=== PATIENT | female | born 1980 | race Two or more races ===

== ENCOUNTER → 2025-01-01 | Outpatient (CLI) | payer MEDICAID, SELFPAY ==
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
== END | disposition home or self-care (01) ==
PROVIDERS: Referring Provider Family Medicine; Visit Provider Family Medicine
DX: R55 Syncope and collapse (principal); R51.9 Headache, unspecified; Z87.828 Personal history of other (healed) physical injury and trauma
CPT/HCPCS: 70450

== ENCOUNTER 2025-02-18 06:17 | Emergency (ER) | payer SELFPAY ==
[2025-02-18 06:20] VITALS: BMI 31.2
[2025-02-18 06:32] VITALS: BP 120/86; PULSE 104; RESP 18; TEMP 37.1; O2SAT 98
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
[2025-02-18 08:49] LABS: Collection Type, Urine Voided
[2025-02-18 08:50] LABS: HCG Qualitative,Urine Negative
[2025-02-18 08:51] LABS: Bilirubin,Urine Negative (Negative); Blood,Urine 1+ (Negative); Clarity,Urine Clear (Clear/Hazy); Color,Urine Yellow (Lt Yel-Yel); Culture Indicated,Urine Not Indicated; Glucose, Urine Negative (Negative); Ketones,Urine Negative (Negative); Leukocyte Esterase,Urine Negative (Negative); Nitrite,Urine Negative (Negative); PH,Urine 6.5 (5.0-7.0); Protein,Urine Trace (Neg - Trace); RBC,Urine 9 /hpf (0-3); Specific Gravity,Urine 1.024 (1.001-1.035); Squamous Epithelial Cell,Urine 1 /hpf (0-5); Urobilinogen,Urine Negative mg/dL (0.0-1.0); WBC,Urine 2 /hpf (0-5)
== END 2025-02-18 10:38 | disposition home or self-care (01) ==
PROVIDERS: Nurse Practitioner Family; Emergency Provider Emergency Medicine
DX: T14.8XXA Other injury of unspecified body region, initial encounter (principal); V49.9XXA Car occupant (driver) (passenger) injured in unspecified traffic accident, initial encounter; M25.551 Pain in right hip; M54.50 Low back pain, unspecified
CPT/HCPCS: 72100; 73502; 81001; 81025; 99283

== ENCOUNTER 2025-04-05 16:30 | Outpatient (RCR) | payer MEDICAID, SELFPAY ==
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
--- NOTE | 2025-04-05 17:49 | PT.ODAYNRPT ---
PT Outpatient Daily Note OP Daily Note Outpatient Physical Therapy Treatment Date: 04/05/25 Visit Reasons: Shoulder/hip/pain Subjective: Continued LBP on R side radiating into the glute and lateral hip Objective: See F/S for therex MT: [facility] L/S x7' Assessment: Poor response to prone on elbows with increased pressure in L/S but standing extension was more tolerable Plan: Continue per POC Length of Time (minutes) of Treatment: 30 Minutes Procedure Charges Therapeutic Exercise 30 minutes: Yes
== END 2025-04-23 23:59 | disposition home or self-care (01) ==
LOC: CPTX 16:30
PROVIDERS: PCP Family Medicine; Referring Provider Family Medicine; Visit Provider Family Medicine
DX: M25.551 Pain in right hip (principal); M54.50 Low back pain, unspecified; M25.512 Pain in left shoulder; M94.0 Chondrocostal junction syndrome [Tietze]
CPT/HCPCS: 97110; 97162

== ENCOUNTER 2025-05-03 16:29 | Emergency (ER) | payer MEDICAID, SELFPAY ==
[2025-05-03 16:48] VITALS: BP 114/79; PULSE 83; RESP 18; TEMP 37.3; O2SAT 97
--- NOTE | 2025-05-03 16:58 | XR_ITS ---
Examination: PA lateral chest 2 views TECHNIQUE: Upright PA lateral chest 2 views Date and time: May 03, 2025, 1731 hours INDICATIONS: Chest pain and shortness of breath beginning 3 days ago. FINDINGS: Normal heart size. Lungs are clear. The osseous structures are intact. IMPRESSION: No active disease.
--- NOTE | 2025-05-03 16:59 | PD.EDRME ---
Rapid Medical Screening Exam RME Arrival date/time: 05/03/25 16:29 44-year-old female presents to the emergency department today for complaints of shortness of breath Chief Complaint: Back Pain/Injury Vital signs: Vital Signs Temperature 99.1 F 05/03/25 16:48 Pulse Rate 83 05/03/25 16:48 Respiratory Rate 18 05/03/25 16:48 Blood Pressure 114/79 05/03/25 16:48 Pulse Oximetry (%) 97 05/03/25 16:48 Oxygen Delivery Method Room Air 05/03/25 16:48
[2025-05-03 17:22] LABS: Basophils # (Auto) 0.1 Thou/mm3 (0.0-0.2); Basophils % (Auto) 1 % (0-2.5); Eosinophils # (Auto) 0.1 Thou/mm3 (0.0-0.5); Eosinophils % (Auto) 1 % (0-10); Hematocrit 35.4 % (36.0-46.0); Hemoglobin 12.8 g/dL (12.0-16.0); Immature Granulocytes Auto 0.02 Thou/mm3 (0.00-0.00); Lymphocytes # (Auto) 3.1 Thou/mm3 (1.0-4.8); Lymphocytes % (Auto) 33 % (10-50); Mean Corpuscular HGB Conc 36.2 g/dl (31.0-37.0); Mean Corpuscular Hemoglobin 33.0 pg (25.0-35.0); Mean Corpuscular Volume 91 fL (80-100); Monocytes # (Auto) 0.3 Thou/mm3 (0.0-0.8); Monocytes % (Auto) 4 % (0-12); Neutrophils # (Auto) 5.9 Thou/mm3 (1.8-7.7); Neutrophils % (Auto) 62 % (37-80); Nucleated Red Blood Cell # 0.00 Thou/mm3 (0.00-0.00); Nucleated Red Blood Cell % 0 /100 WBC (0); Platelet Count 249 Thou/mm3 (140-440); RDW Standard Deviation 39.9 fL (36.4-46.3); Red Blood Count 3.88 Miln/mm3 (4.00-5.20); White Blood Count 9.5 Thou/mm3 (3.6-11.0)
[2025-05-03 17:39] LABS: Alanine Aminotransferase 13 U/L (10-49); Albumin, Serum 4.4 gm/dL (3.5-5.0); Albumin/Globulin Ratio 1.8 (1.2-2.2); Alkaline Phosphatase 73 U/L (46-116); Anion Gap 8 (7-16); Aspartate Amino Transferase 19 U/L (0-34); BUN/Creatinine Ratio 11 Ratio (12-20); Bilirubin,Total 0.8 mg/dL (0.3-1.2); Blood Urea Nitrogen 11 mg/dL (9-23); Calcium 9.0 mg/dL (8.3-10.6); Calcium (Corrected) 9.0 mg/dL (8.5-10.1); Carbon Dioxide 26.4 mMol/L (20.0-31.0); Chloride 109 mMol/L (98-107); Creatinine (Component) 1.0 mg/dL (0.6-1.3); Globulin 2.5 gm/dL (2.3-3.5); Glucose 91 mg/dL (74-106); Osmolality,Calculated 284 (275-295); Potassium 3.6 mMol/L (3.4-5.1); Sodium 143 mMol/L (136-145); Total Protein 6.9 gm/dL (5.7-8.2); Troponin I < 0.002 ng/mL (0.0-0.045); eGFR > 60 See Note
[2025-05-03 17:43] LABS: HCG,Qualitative Serum Negative
[2025-05-03 18:21] LABS: D-Dimer < 250 ng/mL (<600)
--- NOTE | 2025-05-03 19:26 | PD.EDBACK ---
ED Back Injury Pain RME/HPI General Chief Complaint: Back Pain/Injury Stated Complaint: SOB X 3 days, back pain X 3 days Time Seen by Provider: 05/03/25 19:20 Arrival date/time: 05/03/25 16:29 RME / HPI RME / HPI Narrative: 44-year-old female patient came in for evaluation regarding right upper scapular pain. Has been ongoing for the last 3 days, associated with on and off shortness of breath. Patient denies any cough denies any fever denies any other complaints. Was seen by PCP and was prescribed albuterol breathing treatment, Motrin, which reported no relief. Denies any trauma or fall. Related Data Previous Rx's ?Medication ?Instructions ?Recorded cephalexin 500 mg capsule 500 mg PO QID #12 caps 07/20/22 IBU 800 mg tablet (ibuprofen) 800 mg PO Q6H PRN pain #30 tabs 10/10/23 ondansetron 4 mg disintegrating 4 mg PO Q8H PRN nausea and 10/10/23 tablet vomiting #10 tabs promethazine-DM 6.25 mg-15 mg/5 mL 5 ml PO Q6H #120 mL 10/10/23 oral syrup pseudoephedrine HCl 30 mg tablet 30 mg PO Q12HR #14 tabs 10/10/23 (Sudafed) ibuprofen 800 mg tablet 800 mg PO Q8H PRN pain #30 tabs 07/06/24 prednisone 50 mg tablet 50 mg PO QDAY #7 tabs 07/06/24 baclofen 10 mg tablet 10 mg PO QHSPRN PRN muscle spasm 02/18/25 #14 tabs ibuprofen 800 mg tablet 800 mg PO Q6H PRN pain #14 tabs 02/18/25 cyclobenzaprine 10 mg tablet 10 mg PO TID PRN muscle spasm #30 05/03/25 tabs pantoprazole 40 mg tablet,delayed 40 mg PO QDAY #20 tabs 05/03/25 release (Protonix) Allergies Allergy/AdvReac Type Severity Reaction Status Date / Time No Known Allergies Allergy Verified 05/03/25 16:36 Review of Systems Review of Systems Narrative Review of Systems: Review of system reviewed and within normal limits except mentioned in HPI ED Exam Narrative Physical exam: VITAL SIGNS: Reviewed. GENERAL APPEARANCE: Alert and interactive, follows commands, no acute distress, HEAD AND FACE: Non-traumatic. ENT: PERRL, pink conjunctivitis, eyelid no trauma, Mucous membrane moist. NECK: Supple, nontender, no nuchal rigidity. CHEST: No tenderness, no crepitus, no paradoxical movement, no retractions. LUNGS: Clear, well ventilated, symmetric, no rales, no wheezing, no ronchi, no stridor, good breath sounds bilaterally. HEART: Regular rate, regular rhythm, no murmur, no gallops. ABDOMEN: Soft, positive bowel sounds, nondistended, no guarding, nontender, no rebound, no masses, RECTAL: Deferred. GENITAL: Deferred. NEUROLOGICAL: Gross motor function intact sensory function intact, Appropriate for age. MUSCULOSKELETAL: Right upper back tenderness, no rashes noted no masses palpated, full range of motion. EXTREMITIES: Nontender, full range of motion. SKIN: Color pink, dry, no rash, no lacerations, no abrasions, no contusions. LYMPHATICS: Deferred. Course Quality Measures none Orders Category Date Time Status EKG (ED ONLY) *Do not use* NOW Care 05/03/25 16:58 Completed EKG (ED Only) Stat Exams 05/03/25 16:58 Ordered XR chest 2V Stat Exams 05/03/25 16:58 Completed CBC Stat Lab 05/03/25 17:05 Completed Comprehensive Metabolic Panel Stat Lab 05/03/25 17:05 Completed D-Dimer Stat Lab 05/03/25 17:05 Completed HCG,Qualitative Serum Stat Lab 05/03/25 17:05 Completed Troponin I Stat Lab 05/03/25 17:05 Completed Baclofen [Lioresal] Med 05/03/25 19:25 Discontinued 10 mg PO X1 ONE Ketorolac Inj [Toradol Inj] Med 05/03/25 19:25 Discontinued 30 mg IM X1 ONE Vital Signs Vital signs: Vital Signs Temperature 99.1 F 05/03/25 16:48 Pulse Rate 83 05/03/25 16:48 Respiratory Rate 18 05/03/25 16:48 Blood Pressure 114/79 05/03/25 16:48 Pulse Oximetry (%) 97 05/03/25 16:48 Oxygen Delivery Method Room Air 05/03/25 16:48 Back Pain / Injury MDM Narrative MDM Narrative:: 44-year-old female patient came in for evaluation regarding right upper scapular pain. Has been ongoing for the last 3 days, associated with on and off shortness of breath. Patient denies any cough denies any fever denies any other complaints. Was seen by PCP and was prescribed albuterol breathing treatment, Motrin, which reported no relief. Denies any trauma or fall. Patient's workup today UNREMARKABLE INCLUDING NORMAL D-DIMER NORMAL TROPONIN NORMAL CBC NORMAL CMP AND CHEST X-RAY ALSO CAME BACK UNREMARKABLE. Patient's is having muscular pain in the right scapular area. Patient data External records reviewed:: None Clinical information provided by:: patient Social determinants that could affect healthcare access:: none Patient has the following chronic illnesses:: None How is presenting disease/condition affected by chronic disease/condition?: no chronic disease Evaluation data The following diagnostics were reviewed and interpreted by me:: lab results and radiology exam(s) Lab and/or radiology exams considered but not ordered:: None Interpretation Summary: See results MDM Medications / Prescriptions Medications or Prescriptions considered but not ordered:: None Medication administrations:: Medication Administration History Discontinued Medications Baclofen (Baclofen 10 Mg Tablet) 10 mg PO X1 ONE Stop: 05/03/25 19:26 Ketorolac Tromethamine (Ketorolac Inj 60 Mg/2 Ml Vial) 30 mg IM X1 ONE Stop: 05/03/25 19:26 Toradol IM Consultations Consultation(s) initiated? (list below): No Diagnosis Differential diagnosis back pain/injury: strain of lumbar region and thoracic back pain Most likely diagnosis given after review of the tests above:: Upper back pain, muscular Admission Indicated Admission indicated?: not indicated Explain why admission is indicated or not indicated:: Stable Admission Request Was there a request for admission?: No Disposition Plan Disposition Plan: Discharge Discharge Attestation Discharge Attestation: The patient and all family members were given an opportunity to ask questions and understood the discharge instructions. Discharge instructions specifically effects, indications for sooner follow up or return to the emergency department, and the expected course of current diagnosis. Patient condition: Stable Discharge Plan Plan Patient Disposition: HOME (Self Care) Discharge Disposition comment: stable Prescriptions/Referrals Prescriptions/Med Rec: New cyclobenzaprine 10 mg tablet 10 mg PO TID PRN (Reason: muscle spasm) Qty: 30 0RF pantoprazole [Protonix] 40 mg tablet,delayed release (DR/EC) 40 mg PO QDAY Qty: 20 0RF No Action pseudoephedrine HCl [Sudafed] 30 mg tablet 30 mg PO Q12HR Qty: 14 0RF ondansetron 4 mg tablet,disintegrating 4 mg PO Q8H PRN (Reason: nausea and vomiting) Qty: 10 0RF promethazine-DM 6.25-15 mg/5 mL syrup 5 ml PO Q6H Qty: 120 0RF ibuprofen [IBU] 800 mg tablet 800 mg PO Q6H PRN (Reason: pain) Qty: 30 0RF prednisone 50 mg tablet 50 mg PO QDAY Qty: 7 0RF ibuprofen 800 mg tablet 800 mg PO Q8H PRN (Reason: pain) Qty: 30 0RF ibuprofen 800 mg tablet 800 mg PO Q6H PRN (Reason: pain) Qty: 14 0RF baclofen 10 mg tablet 10 mg PO QHSPRN PRN (Reason: muscle spasm) Qty: 14 0RF cephalexin 500 mg capsule 500 mg PO QID Qty: 12 0RF Referrals: No Primary/Family,Physician [Primary Care Provider] - In 1 week Problem List Clinical Impression: Pain of right scapula Patient/Caregiver Discharge Instructions Discharge Activity: activity as tolerated Education Materials: The Shoulder Joint Additional Instructions: Thank you for the opportunity for serving you today. You are stable for discharged . You are advised to: Follow-up with your PCP in 1 to 2 days Return to ED for worsening of symptoms Increase oral fluids Take medication as prescribed Continue taking your Motrin as needed Print Language: Mauritian Stand Alone Forms: Sera Award Info., Patient Portal Info Letter
[2025-05-03] MEDS: KETOROLAC INJ 60 MG/2 ML VIAL 30 MG IM (19:37)
[2025-05-03] MEDS: BACLOFEN 10 MG TABLET PO (19:38)
[2025-05-03 19:48] VITALS: BP 122/68; PULSE 77; RESP 18; TEMP 36.8; O2SAT 99
== END 2025-05-03 19:48 | disposition home or self-care (01) ==
PROVIDERS: Nurse Practitioner Primary Care; Emergency Provider Emergency Medicine
DX: M25.511 Pain in right shoulder (principal); R06.02 Shortness of breath
CPT/HCPCS: 36415; 71046; 80053; 84484; 84703; 85025; 85379; 96372; 99284; J1885; A9270

== ENCOUNTER 2025-06-22 10:04 | Emergency (ER) | payer MEDICAID, SELFPAY ==
[2025-06-22 10:05] VITALS: BMI 28.1
[2025-06-22 10:14] VITALS: BP 110/72; PULSE 78; RESP 18; TEMP 36.6; O2SAT 99
--- NOTE | 2025-06-22 10:22 | PD.EDURI ---
Upper Respiratory Inf. RME/HPI General Chief Complaint: Flu Like Symptoms Stated Complaint: VOMITING, SORE THROAT, EAR PAIN x 3 DAYS Time Seen by Provider: 06/22/25 10:06 Source: patient Arrival date/time: 06/22/25 10:04 44-year-old female with no known medical history presents to the emergency room with a chief complaint of a sore throat, coughing, congestion, intermittent fevers, ear pain x 3 days Mode of arrival: ambulatory Limitations: no limitations Related Data Previous Rx's ?Medication ?Instructions ?Recorded cephalexin 500 mg capsule 500 mg PO QID #12 caps 07/20/22 IBU 800 mg tablet (ibuprofen) 800 mg PO Q6H PRN pain #30 tabs 10/10/23 ondansetron 4 mg disintegrating 4 mg PO Q8H PRN nausea and 10/10/23 tablet vomiting #10 tabs promethazine-DM 6.25 mg-15 mg/5 mL 5 ml PO Q6H #120 mL 10/10/23 oral syrup pseudoephedrine HCl 30 mg tablet 30 mg PO Q12HR #14 tabs 10/10/23 (Sudafed) ibuprofen 800 mg tablet 800 mg PO Q8H PRN pain #30 tabs 07/06/24 prednisone 50 mg tablet 50 mg PO QDAY #7 tabs 07/06/24 baclofen 10 mg tablet 10 mg PO QHSPRN PRN muscle spasm 02/18/25 #14 tabs ibuprofen 800 mg tablet 800 mg PO Q6H PRN pain #14 tabs 02/18/25 cyclobenzaprine 10 mg tablet 10 mg PO TID PRN muscle spasm #30 05/03/25 tabs pantoprazole 40 mg tablet,delayed 40 mg PO QDAY #20 tabs 05/03/25 release (Protonix) acetaminophen 325 mg capsule 650 mg (2 x 325 mg) PO QID PRN 06/22/25 fever or pain 7 days #30 caps albuterol sulfate 90 mcg/actuation 2 puff inhalation Q6H PRN 06/22/25 aerosol inhaler (Ventolin HFA) shortness of breath or wheezing #6.7 grams Allergies Allergy/AdvReac Type Severity Reaction Status Date / Time No Known Allergies Allergy Verified 06/22/25 10:09 Review of Systems Review of Systems Systems Reviewed: All systems reviewed, normal except as documented Constitutional Constitutional: Reports system reviewed and no additional complaints, except as documented, Denies fatigue, Denies fever(s), Denies headache(s) and Denies weakness Eyes Eyes: Reports system reviewed and no additional complaints, except as documented, Denies blurry vision and Denies change in vision ENT Ears, Nose, Mouth, and Throat: Reports system reviewed and no additional complaints, except as documented, Denies otalgia, Denies headache(s), Denies nasal congestion, Denies throat swelling and Denies vertigo Cardiovascular Cardiovascular: Reports system reviewed and no additional complaints, except as documented, Denies chest pain, Reports dyspnea and Denies dyspnea on exertion Respiratory Respiratory: Reports system reviewed and no additional complaints, except as documented, Reports chest congestion, Reports cough, Reports dyspnea, Denies dyspnea on exertion and Denies wheezing Gastrointestinal Gastrointestinal: Reports system reviewed and no additional complaints, except as documented, Denies abdominal pain, Denies cramping, Denies nausea and Denies vomiting Genitourinary Genitourinary: Reports system reviewed and no additional complaints, except as documented Musculoskeletal Musculoskeletal: Reports system reviewed and no additional complaints, except as documented and Denies back pain Integumentary/Breasts Skin/Breast: Reports system reviewed and no additional complaints, except as documented and Denies wounds Neurologic Neurologic: Reports system reviewed and no additional complaints, except as documented, Denies confusion, Denies headache(s), Denies lack of coordination, Denies vertigo and Denies weakness Psychiatric Psychiatric: Reports system reviewed and no additional complaints, except as documented, Denies anxiety, Denies confusion, Denies depression, Denies paranoia, Denies suicidal ideation and Denies tactile hallucinations Endocrine Endocrine: Reports system reviewed and no additional complaints, except as documented and Denies fatigue Hematologic/Lymphatic Hematologic/Lymphatic: Reports system reviewed and no additional complaints, except as documented and Denies lymphadenopathy Allergic/Immunologic Allergic/Immunologic: Reports system reviewed and no additional complaints, except as documented, Denies throat swelling, Denies urticaria and Denies wheezing ED Exam General Limitations: Present no limitations General appearance: Present alert and in no apparent distress Head Head exam: Present atraumatic Eye Eye exam: Present normal appearance, PERRL and EOMI ENT ENT exam: Present normal exam, normal oropharynx and mucous membranes moist Expanded ENT Exam External ear exam: Present normal external inspection Throat exam: Present tonsillar erythema; Absent tonsillomegaly, tonsillar exudate, R peritonsillar mass, L peritonsillar mass or muffled voice Neck Neck exam: Present normal inspection, full ROM and trachea midline Chest Chest inspection: Present normal inspection and symmetric chest wall rise Respiratory Respiratory exam: Present normal lung sounds bilaterally; Absent respiratory distress, wheezes, stridor, accessory muscle use or prolonged expiratory phase Cardiovascular Cardiovascular exam: Present regular rate, normal rhythm and normal heart sounds; Absent tachycardia Abdominal Exam Abdominal exam: Present soft and normal bowel sounds Extremities Exam Extremities exam: Present normal inspection and full ROM Back Exam Back exam: Present normal inspection and full ROM Neurological Exam Neurological exam: Present alert, oriented X3 and CN II-XII intact Psychiatric Psychiatric exam: Present normal affect and normal mood Skin Skin exam: Present warm, dry, intact and normal color Course Quality Measures none Vital Signs Vital signs: Vital Signs Temperature 98 F 06/22/25 10:14 Pulse Rate 78 06/22/25 10:14 Respiratory Rate 18 06/22/25 10:14 Blood Pressure 110/72 06/22/25 10:14 Pulse Oximetry (%) 99 06/22/25 10:14 Oxygen Delivery Method Room Air 06/22/25 10:14 Upper Respiratory Infection MDM Narrative MDM Narrative:: 44-year-old female with no known medical history presents to the emergency room with a chief complaint of a sore throat, coughing, congestion, intermittent fevers, ear pain x 3 days Patient is hemodynamically stable and in no apparent distress. Patient is afebrile not tachycardic not tachypneic and O2 saturation 99% within normal limits Physical examination shows clear bilateral lung sounds there is no wheezing or any abnormal breath sounds. ENT examination shows an erythemic posterior pharynx. There are no exudates. Tympanic membrane's are clear bilaterally. Patient tested positive for COVID-19 Patient was discharged and educated to follow-up with primary care provider in the next 24 to 48 hours and return to the emergency room for any evidence of worsening signs or symptoms Patient data External records reviewed:: [facility] previous records Clinical information provided by:: patient Social determinants that could affect healthcare access:: none Patient has the following chronic illnesses:: No chronic illness How is presenting disease/condition affected by chronic disease/condition?: no chronic disease Evaluation data The following diagnostics were reviewed and interpreted by me:: lab results and radiology exam(s) Lab and/or radiology exams considered but not ordered:: Labs and radiology exams considered and ordered Interpretation Summary: N/A Medications / Prescriptions Medications or Prescriptions considered but not ordered:: Rx given Medication administrations:: Rx given Consultations Consultation(s) initiated? (list below): No Diagnosis Upper Respiratory Differential Diagnosis: upper respiratory infection, otitis media, sinusitis, viral infection, bronchitis, influenza, pharyngitis and other (COVID-19/24 pneumonia) Most likely diagnosis given after review of the tests above:: COVID-19 Admission Indicated Admission indicated?: not indicated Admission Request Was there a request for admission?: No Disposition Plan Disposition Plan: Discharge Discharge Attestation Discharge Attestation: The patient and all family members were given an opportunity to ask questions and understood the discharge instructions. Discharge instructions specifically effects, indications for sooner follow up or return to the emergency department, and the expected course of current diagnosis. Patient condition: Stable Discharge Plan Plan Patient Disposition: HOME (Self Care) Discharge Disposition comment: Stable Prescriptions/Referrals Prescriptions/Med Rec: New albuterol sulfate [Ventolin HFA] 90 mcg/actuation HFA aerosol inhaler 2 puff inhalation Q6H PRN (Reason: shortness of breath or wheezing) Qty: 6.7 0RF acetaminophen 325 mg capsule 650 mg PO QID PRN (Reason: fever or pain) 7 Days Qty: 30 0RF No Action pseudoephedrine HCl [Sudafed] 30 mg tablet 30 mg PO Q12HR Qty: 14 0RF ondansetron 4 mg tablet,disintegrating 4 mg PO Q8H PRN (Reason: nausea and vomiting) Qty: 10 0RF promethazine-DM 6.25-15 mg/5 mL syrup 5 ml PO Q6H Qty: 120 0RF ibuprofen [IBU] 800 mg tablet 800 mg PO Q6H PRN (Reason: pain) Qty: 30 0RF prednisone 50 mg tablet 50 mg PO QDAY Qty: 7 0RF ibuprofen 800 mg tablet 800 mg PO Q8H PRN (Reason: pain) Qty: 30 0RF ibuprofen 800 mg tablet 800 mg PO Q6H PRN (Reason: pain) Qty: 14 0RF baclofen 10 mg tablet 10 mg PO QHSPRN PRN (Reason: muscle spasm) Qty: 14 0RF cephalexin 500 mg capsule 500 mg PO QID Qty: 12 0RF cyclobenzaprine 10 mg tablet 10 mg PO TID PRN (Reason: muscle spasm) Qty: 30 0RF pantoprazole [Protonix] 40 mg tablet,delayed release (DR/EC) 40 mg PO QDAY Qty: 20 0RF Problem List Clinical Impression: COVID-19 Patient/Caregiver Discharge Instructions Education Materials: 2019-nCoV Additional Instructions: Por favor, consulte con gilbert m?dico de cabecera en las pr?ximas 24 a 48 horas. Ignacio positivo en la prueba de COVID-19. El tratamiento es el control de los s?ntomas. Contin?e tomando Tylenol e ibuprofeno para controlar la fiebre. Aumente gilbert ingesta de l?quidos por v?a oral. Ante cualquier signo de empeoramiento de los signos o s?ntomas, acuda de inmediato a urgencias. Print Language: French Stand Alone Forms: Sera Award Info., Patient Portal Info Letter PA/[employer] Supervising Physician PA/[employer] Supervising Physician: Dr. Jeronimo
--- NOTE | 2025-06-22 10:36 | PC.NURSE ---
NAx3 1025, 1033, 1037 for medication and discharge paperwork.
== END 2025-06-22 10:38 | disposition home or self-care (01) ==
LOC: SERX 10:23
PROVIDERS: Emergency Provider Family Medicine; PCP Family Medicine
DX: U07.1 COVID-19 (principal)
CPT/HCPCS: 87400; 87811; 99281

== ENCOUNTER → 2025-08-03 | Outpatient (CLI) | payer MEDICAID, SELFPAY ==
[2025-08-03 12:30] LABS: HCG Qualitative,Urine Negative
--- NOTE | 2025-08-03 13:30 | XR_ITS ---
Examination: CT abdomen with intravenous contrast CT pelvis with intravenous contrast 2-D coronal reconstructions 2-D sagittal reconstructions Date and time of exam: August 03, 2025, 1435 hours INDICATIONS: Onset umbilical pain beginning 1 week ago COMPARISON: 07/07/2024. CTDI: vol (mGy) 7.83 DLP: (mGycm) 469 Technique: Multiple axial sections of the abdomen and pelvis have been obtained. 64 slice high-resolution scanner used. 3 mm axial sections have been obtained, post intravenous injection 60 cc [id number] 2D sagittal coronal reconstructions Low dose protocols, automated exposure control, adjustment of MA KV according to patient size FINDINGS: FINDINGS: Small liver cyst No gallstones Spleen not enlarged No pancreatic or adrenal mass No renal or ureteral calculi, no hydronephrosis 8 mm fat-containing umbilical hernia Normal appendix No bowel obstruction No diverticulitis Suspicious for 28 mm right adnexal cyst No discrete uterine mass Contracted urinary bladder The osseous structures are intact IMPRESSION: Recommend pelvic sonography to exclude 28 mm right adnexal cyst 8 mm fat-containing umbilical hernia
== END | disposition home or self-care (01) ==
LOC: SCAT 13:17
PROVIDERS: PCP Family Medicine; Referring Provider Physician Assistant; Visit Provider Physician Assistant
DX: K42.9 Umbilical hernia without obstruction or gangrene (principal); Z32.00 Encounter for pregnancy test, result unknown
CPT/HCPCS: 74177; 81025; A4649; Q9967